=== PATIENT | female | born 1955 | race Caucasian/White ===

== ENCOUNTER → 2023-10-08 11:46 | Outpatient (REF) | payer MEDICARE, SELFPAY | LOC: PAVMRI 11:46 | PROVIDERS: ATTENDING PHYSICIAN Nurse Practitioner | DX: R29.898 Other symptoms and signs involving the musculoskeletal system (principal); R29.6 Repeated falls | CPT/HCPCS: 70553; A9575 ==

== ENCOUNTER → 2024-01-27 13:05 | Outpatient (REF) | payer MEDICARE, SELFPAY | LOC: WDC 13:05 | PROVIDERS: ATTENDING PHYSICIAN Nurse Practitioner | DX: Z12.31 Encounter for screening mammogram for malignant neoplasm of breast (principal) | CPT/HCPCS: 77063; 77067 ==

== ENCOUNTER → 2025-02-24 09:33 | Outpatient (REF) | payer MEDICARE, SELFPAY ==
[2025-02-24 12:47] LABS: ALT (SGPT) 14 U/L (0-35); AST (SGOT) 18 U/L (14-36); Albumin 4.5 g/dl (3.5-5.0); Alkaline Phosphatase 43 U/L (38-126); Blood Urea Nitrogen 13 mg/dl (7-17); Calcium 9.8 mg/dl (8.4-10.2); Carbon Dioxide 23 mmol/L (22-30); Chloride 96 mmol/L (98-107); Glucose 131 mg/dl (70-99); Potassium 4.1 mmol/L (3.5-5.1); Sodium 131 mmol/L (135-145); Total Protein 6.8 g/dl (6.3-8.2); eGFR > 60.00
== END ==
LOC: HWLAB 09:33
PROVIDERS: ATTENDING PHYSICIAN Nurse Practitioner
DX: E87.1 Hypo-osmolality and hyponatremia (principal)
CPT/HCPCS: 36415; 80053

== ENCOUNTER → 2025-03-28 07:32 | Outpatient (REF) | payer MEDICARE, SELFPAY | LOC: HWRCS 07:32 | PROVIDERS: ATTENDING PHYSICIAN Nurse Practitioner | DX: R94.31 Abnormal electrocardiogram [ECG] [EKG] (principal) | CPT/HCPCS: 78452; 93017; A9500; J2785 ==

== ENCOUNTER → 2025-05-31 13:37 | Outpatient (REF) | payer MEDICARE, SELFPAY | LOC: HWWDC 13:37 | PROVIDERS: ATTENDING PHYSICIAN Nurse Practitioner | DX: Z12.31 Encounter for screening mammogram for malignant neoplasm of breast (principal) | CPT/HCPCS: 77063; 77067 ==